=== PATIENT | female | born 1960 | race Caucasian/White ===

== ENCOUNTER 2018-04-13 06:02 | Inpatient (IN) ==
[2018-04-13] MEDS ORDERED: CeFAZolin Syr 2,000MG/20 ML 2,000 MG/20 ML SYRINGE IVPB ONE (06:19)
[2018-04-13] MEDS ORDERED: Ringers Solution, Lactated 1,000 ML IVC SCH ×2 (06:30→07:30)
[2018-04-13] MEDS ORDERED: Albuterol 2.5 MG/3 ML NEBULIZER IH ONE ×2 (06:44→07:21)
--- NOTE | 2018-04-13 07:03 | Urology History & Physical ---
Date of Encounter: 04/13/18 Time of Encounter: 07:01 Assessment and Plan (1) Uterine prolapse Current Visit: Yes Status: Acute all questions answered. ok to proceed with surgery as planned History of Present Illness Chief complaint: here for surgery HPI: Ms. Arreaga is a 57 year old female plan for a ASCP and mid urethral sling. supracerival hyst. Past Med Surg Social Fam HX - Past Medical History Medical history: GERD, hyperlipidemia, hypertension Additional medical history: benign tumor right breast,diverticulosis Psychiatric history: no psych history - Past Surgical History Surgical History: breast surgery, Additional surgical history: egd/colonoscopy - Social History Smoking Status: Current every day smoker Smokeless Tobacco Status: No Alcohol use: none Drug use: none Medications and Allergies Ezetimibe 10 mg PO DAILY 04/13/18 [History] Losartan Potassium 25 mg PO DAILY 04/13/18 [History] Ranitidine HCl [Acid Food Counter Attendant] 150 mg PO BID 04/13/18 [History] Allergy/AdvReac Type Severity Reaction Status Date / Time codeine Allergy Hives Verified 12/13/16 10:08 Review of Systems - Constitutional no fever(s) Exam Initial Vital Signs Temp Pulse Resp BP Pulse Ox 98.6 F 81 18 109/65 96 04/13/18 06:18 04/13/18 06:18 04/13/18 06:18 04/13/18 06:18 04/13/18 06:18 - General physical appearance Absent: well developed, no distress Urology Results - Labs All other labs normal.
[2018-04-13] MEDS ORDERED: *HR* Midazolam HCl 2 MG/2 ML VIAL ONE (07:05)
[2018-04-13] MEDS ORDERED: Lidocaine -MPF 4% 5 ML AMPUL ONE (07:05)
[2018-04-13] MEDS ORDERED: Lidocaine -MPF 2% 2 ML VIAL ONE (07:05)
[2018-04-13] MEDS ORDERED: *HR* Rocuronium Bromide 50 MG/5 ML VIAL ONE ×3 (07:05→09:32)
[2018-04-13] MEDS ORDERED: *HR* FentaNYL (PF) 100 MCG/2 ML VIAL ONE (07:05)
[2018-04-13] MEDS ORDERED: *HR* Propofol 200 MG/20 ML VIAL IVP ONE (07:05)
--- NOTE | 2018-04-13 07:05 | Anesthesia Evaluation PreOp ---
Date of Encounter: 04/13/18 Time of Encounter: 07:03 - Past History Planned Operation: Abd sacrocolpopexy, supracervical hysterectomy Cardiac History: HTN, Hyperlipidemia Pulmonary History: Smoker, Pack/yr (40) Other Medical History: GERD Anesthesia History: No Prior Anesthetic Complications, Past Anesthesia (csection, R breast benign tumor, cyst removed from left wrist, tubal, colonoscopy, egd) Alcohol Use: none Drug use: none Medications and Allergies Ezetimibe 10 mg PO DAILY 04/13/18 [History] Losartan Potassium 25 mg PO DAILY 04/13/18 [History] Ranitidine HCl [Acid Jig Bore Operator] 150 mg PO BID 04/13/18 [History] Allergy/AdvReac Type Severity Reaction Status Date / Time codeine Allergy Hives Verified 12/13/16 10:08 - Meds/Allergy Pre-op Review Medications Reviewed: Yes Allergies Reviewed: Yes Beta Blockers on Current Med List: No Anesthesia Results - Labs Laboratory Tests 04/06/18 04/06/18 04/06/18 14:30 14:30 14:30 WBC 9.4 Hgb 15.9 H Hct 49.2 H Plt Count 307 PT 11.5 INR 1.0 APTT 40.4 H Sodium 137 Potassium 5.1 Chloride 105 Carbon Dioxide 27 BUN 14 Creatinine 0.76 - Imaging EKG: report reviewed (SINUS RHYTHM wnl Electronically Signed On 04-09-2018 9:00:57 EST by Jhonny Goff) Anesthesia Exam O2 Sat Height 1.55 m Height 1.55 m Weight 73.028 kg Weight 73.028 kg O2 Sat by Pulse Oximetry 96 Vital Signs Temp Pulse Resp BP Pulse Ox 98.6 F 81 18 109/65 96 04/13/18 06:18 04/13/18 06:18 04/13/18 06:18 04/13/18 06:18 04/13/18 06:18 Height: 5'2" Weight: 73kg NPO (# of Hours): >8 - HEENT Pupil (Motor): Pupils equal, EOMI Mallampati: II Teeth: Edentulous (upper) - OTHER WOOD PROCESSING MACHINE OPERATOR LOC: Oriented OTHER WOOD PROCESSING MACHINE OPERATOR Motor: Normal RUE, Normal LUE, Normal RLE, Normal LLE, Normal Face OTHER WOOD PROCESSING MACHINE OPERATOR Sensory: Normal: RUE, LUE, RLE, LLE, Face - Cardiac Rhythm: Regular - Pulmonary Breath Sounds: bilateral Clear Respiratory Effort: Symmetrical Anesthesia Assess/Plan ASA Score: 2 Level of consciousness: Cooperative Anesthetic Plan: General Monitoring Plan: Standard Monitors Recovery Plan: PACU
[2018-04-13] MEDS ORDERED: Acetaminophen IV 1,000 MG/100 ML INFUS..BTL ONE (07:17)
[2018-04-13] MEDS ORDERED: *HR* OxyCODONE Immed Rel 5 MG TABLET PO PRN (07:21)
[2018-04-13] MEDS ORDERED: *HR* HYDROmorphone (PF) 1 MG/ML SYRINGE IVP PRN (07:21)
[2018-04-13] MEDS ORDERED: *HR* Promethazine 25 MG/ML VIAL IVP PRN (07:21)
[2018-04-13] MEDS ORDERED: Ipratropium Neb 0.5 MG NEBULIZER IH ONE (07:21)
[2018-04-13] MEDS ORDERED: *HR* Meperidine 25 MG/ML SYRINGE IVP PRN (07:21)
[2018-04-13] MEDS ORDERED: Ondansetron 4 MG/2 ML VIAL IVP ONE (07:21)
[2018-04-13] MEDS ORDERED: Dexamethasone 4 MG/ML VIAL ONE (07:28)
[2018-04-13] MEDS ORDERED: Ondansetron 4 MG/2 ML VIAL ONE (07:28)
--- NOTE | 2018-04-13 07:37 | History & Physical Report ---
Date of Encounter: 04/13/18 Time of Encounter: 07:36 24 Hour HP Update - Instructions Instructions: If the History and Physical is less than 30 days old and was completed prior to A.M. admission and or procedure and has NOT been updated on calendar day of procedure please complete this update prior to performing procedure. - Update Patient reports changes in Medical Condition: No Changes in examination, assessment, or condition: No Changes in Medication: No Preop tests/diagnostics Reviewed: Yes Surgery Remains Indicated: Yes Consent for Planned Operative Procedure(s) Verified: Yes - Pre-Operative Checklist Preoperative Checklist Indicated: Yes Prophylactic Antibiotic Ordered: Yes Home Medications Include Beta Deacon: No Beta Deacon Taken Today (Day of Surgery): No Beta Deacon Taken Yesterday (Day Prior to Surgery): No Is VTE Prophylaxis Indicated?: Yes
[2018-04-13] MEDS ORDERED: Lidocaine/EPI 1:200k 1% PF 10 ML VIAL ONE (07:52)
[2018-04-13] MEDS ORDERED: Neostigmine Methylsulfate 3 MG/3 ML SYRINGE ONE ×2 (08:03→11:07)
[2018-04-13] MEDS ORDERED: *HR* PHENYLEPHRINE 1,000 MCG/10 ML SYRINGE IVP ONE (08:12)
[2018-04-13] MEDS ORDERED: EPHEDrine 50 MG/ML VIAL ONE (08:31)
[2018-04-13] MEDS ORDERED: Esmolol 100 MG/10 ML VIAL IVP ONE (08:50)
[2018-04-13] MEDS ORDERED: *HR* HYDROMORPHONE 2 MG/ML VIAL ONE (09:09)
--- NOTE | 2018-04-13 10:31 | OB/GYN Procedure Note ---
OB-ENROLLED NURSE: Procedure - Diagnosis Date of procedure: 04/13/18 Pre-op diagnosis: Pelvic Organ Prolapse Post-op diagnosis: same - Procedure Procedure: Supracervical hysterectomy, BSO Surgeon: Aleshia Toney Was there an recreation assistant present: Yes Restaurant District Manager: Paula Gee Anesthesia Type: General Estimated blood loss (cc): 5 Fluids: crystalloid Procedure Complications: none Specimens collected: uterus, ovaries and tubes Disposition: same day Findings: normal uterus, ovaries and tubes Narrative: The patient was placed in the dorsal supine position after an adequate level of general anesthesia was obtained and after appropriate informed consent had been obtained. The Anne was draining clear urine from the bladder. After the patient was prepped and draped in the usual sterile manner, a Pfannenstiel incision was made. The subcutaneous tissue was incised until the level of the rectus fascia was reached. A sharri was made in the fascia. This was extended the length of the incision. The recti muscles were to get adequate entry into the abdomen. The abdomen was explored. The findings documented above were noted. The Book Waqas retractor was set up before the hysterectomy was started. The right IP ligament was clamped with the Ligasure device, coagulated and cut freeing the ovary/tube. The round ligament was clamped, coagulated and cut allowing us to gain entry into the broad ligament. The anterior leaf of the broad ligament was dissected and cut using Metzenbaum scissors. The bladder was gently dissected using sharp and blunt dissection. The uterine vessels were skeletonized, clamped, coagulated and cut. A similar procedure was done on the opposite side. The uterus was amputated at this point at the utero-cervico junction with the bovie. Bleeding points were suture ligated until adequate hemostasis was achieved. Pls see Dr Hinojosa's notes for the sacrocolpopexy.
[2018-04-13] MEDS ORDERED: Naloxone 0.4 MG/ML INJ IVP PRN (11:29)
[2018-04-13] MEDS ORDERED: Ondansetron 4 MG/2 ML VIAL IVP PRN (11:29)
[2018-04-13] MEDS ORDERED: *HR* FentaNYL (PF) 100 MCG/2 ML VIAL IVP PRN (11:34)
[2018-04-13] MEDS ORDERED: traMADol 50 MG TABLET PO PRN (11:35)
--- NOTE | 2018-04-13 11:49 | Operative Note ---
Date of procedure: 04/13/18 Pre-op diagnosis: uterine prolapse and CHAI Post-op diagnosis: same Procedure: abdominal sacrocolopexy (ASCP) supris mid urethral sling cystoscopy. Anesthesia: GETA Surgeon: Dylon Hinojosa Was there an credit assistant present: Yes Rubber Tire Curer: Kelley Kim Estimated blood loss (cc): 100 Specimen: none Condition: stable Disposition: PACU Procedure in Detail: I entered the room as Dr. hernandez was completing the supracervical hysterectomy. Patient was already intubated and under anesthesia. She was positioned in dorsal lithotomy. Solano catheter was in place and was draining clear urine. A Bookwalter retractor was in place with the bowel packed superiorly. The case was turned over. I examined the pelvis and noted no significant bleeding from the hysterectomy. There are Vicryl sutures at the location of the supracervical hysterectomy. I did not have good exposure of the sacral promontory I elected to take the superior retractor down and re-pack the bowel superiorly to expose the sacral promontory. I placed an EEA in the vagina to help with mobility of the vaginal cuff. Metzenbaum scissors were used to incise the peritoneum over the sacral promontory and this was continued inferiorly along the right aspect of the pelvis until reaching the vagina. The peritoneum on the anterior aspect of the bladder had already been dissected and there was no evidence of a bladder injury. I did have some difficulty dissecting the peritoneum posterior to the vagina as I did encounter some bleeding from the cervical tissue. I was eventually able to clear a space between the vagina and rectum. I then placed 4 2-0 proline sutures in 4 quadrants along the posterior aspect of the vaginal mucosa. These were later threaded through the [employer] Y mesh and tied down. An additional 4 sutures were placed in the anterior vaginal mucosa and sutured to the other side of the Y mesh. Again the EEA was used to help mobilize and maneuver the vagina during this portion of the procedure. I then preplaced 2 2-0 proline sutures into the tissue near the sacral promontory avoiding venous injury. The remaining arm of the Y mesh was extended up to this location and I threaded the 2 Prolene sutures through the tail of the mesh and tied them to secure the mesh to the tissue surrounding the sacral promontory. It appeared that the vaginal cuff was well supported. The excess mesh was trimmed from each tail. I was able to visualize the right ureter and it was uninjured during the procedure. I then closed the posterior peritoneum with a running 0 Vicryl to completely retroperitonealize the mesh. I then proceeded to perform the mid urethral sling. Weighted vaginal speculum was placed and secured with an Allis clamp. Snowman retractor was placed and used to retract the labia and provide better visualizat ion. At that point, approximately 5 cc of 1% lidocaine with epinephrine was injected into the anterior vaginal mucosa overlying the mid urethra to hydrodissect the area. 15 blade scalpel was then used to make an approximately 2-cm veritcal incision. Underlying tissue was carefully dissected with Metzenbaum scissors and blunt dissection to create a space lateral to the urethra and beneath the pubic rami on each side. The solano catheter was in place allowing me to palpate the urethra and prevent urethral injury during this portion of the procedure. I had adequate dissection on both sides. The Supris trocars were placed from an [id number] fashion down onto my finger within the vaginal incision and previously dissected area. I passed the trochars through the abdominal incision to avoid further stab incisions in the suprapubic region. While passing the trocars I was careful to stay close to the pubic symphysis and used my finger to push the urethra off to the contralateral side. With both trocars in place, I removed the Solano catheter and inserted the 21-[place] rigid cystoscope. The bladder was inspected with a 30 and 70-degree lens. There was clear efflux of urine from both ureteral orifices and no evidence of trocar injury and the bladder mucosa was intact. I also passed a 5-[place] ureteral catheter confirmed the right ureter was uninjured. It passed without resistance. The urethra also appeared uninjured and the solano catheter was replaced. At that point, I obtained the Supris sling and threaded the sling through the eyelets of the trocars. The trocars were then pulled from an [id number] fashion. The sling was positioned under the mid urethra. The sling was not twisted and had minimal tension . I wassatisfied with the sling position and closed the vaginal incision with a running 2-0 Vicryl suture. Vaginal packing was placed with 2- inch Stefanie moistened with normal saline. Solano catheter was left in place. The excess sling material was excised and the suprapubic incisions. I then closed the abdominal incision by reapproximating the rectus muscle with 0 Vicryl. The fascia was closed with a running #1 looped PDS. Laura's with a 2-0 Vicryl and the skin with a 4-0 Monocryl and Dermabond. Abdominal binder was placed. All counts were correct 2.
--- NOTE | 2018-04-13 12:26 | Anesthesia Evaluation Post Op ---
Date of Encounter: 04/13/18 Time of Encounter: 12:26 - Vital Signs Vital Signs: Vital Signs/O2 Sat, Most Current Temp Pulse Resp BP Pulse Ox 98.5 F 87 16 131/55 98 04/13/18 12:00 04/13/18 12:10 04/13/18 12:10 04/13/18 12:10 04/13/18 12:10 - Lungs Lungs: Clear Ascult./Percussion - Airway Airway: Non-obstructed - Cardiovascular Regular Rate, Baseline Rhythm - Mental Status Mental Status: Alert & Oriented, Answers Appropriately - Pain Pain Scale: 2 Pain Scale used: Numeric (1 - 10) - Nausea Vomiting Nausea Vomiting: Not Present - Hydration Hydration: Tolerates oral liquids, Ice chips, Anne catheter - Discharge PostOp Status: Transfer Patient to floor
--- NOTE | 2018-04-13 14:48 | Event Note ---
Date of Encounter: 04/13/18 Time of Encounter: 14:45 POD #0. Patient seen and examined lying in bed in no apparent distress. Patient states pain is well controlled. Anne catheter is indwelling and draining clear urine into bedside bag. Patient is tolerating clears without nausea or vomiting. Primary dressing is clean, dry, intact. Vaginal packing in situ. Reviewed reassuring vital signs and discussed positive patient progress with nurse. Will reevaluate patient in am.
[2018-04-13] MEDS: Acetaminophen IV 1,000 MG/100 ML INFUS..BTL IVPB SCH (17:58)
[2018-04-14] MEDS: Acetaminophen IV 1,000 MG/100 ML INFUS..BTL IVPB SCH ×2 (01:19→05:57)
[2018-04-14 06:26] LABS: Basophils % 0.1 %; Eosinophils % 0.2 %; Hematocrit 38.9 % (35.3-44.9); Hemoglobin 12.9 g/dL (11.5-15.4); Immature Granulocytes % 0.3 % (0-4); Lymphocytes # 2.2 K/mcL (0.6-4.6); Lymphocytes % 17.4 %; Mean Corpuscular HGB Conc 33.2 g/dL (31.6-35.5); Mean Corpuscular Hemoglobin 30.5 pg (28.0-33.3); Monocytes # 1.3 K/mcL (0.0-1.3); Monocytes % 10.2 %; Platelet Count 190 K/mcL (140-400); Red Blood Count 4.23 M/mcL (3.82-4.97); Red Cell Distribution Width 13.5 % (11.5-14.5); Segmented Neutrophils % 71.8 %
[2018-04-14 06:38] LABS: BUN/Creatinine Ratio 20 (6-26); Blood Urea Nitrogen 11 mg/dL (6-20); Calcium 8.7 mg/dL (8.6-10.3); Carbon Dioxide 26 mEq/L (23-29); Chloride 106 mEq/L (98-107); Glucose 125 mg/dL (70-105); Osmolality,Calculated 283 (280-300); Sodium 136 mEq/L (136-145); eGFR For Non-African Americans > 60 (> 60)
--- NOTE | 2018-04-14 08:34 | Discharge Summary ---
Orders not resulted at time of discharge: Pending orders 04/13/18 09:36 Surgical Pathology [PTH] Routine Date of Encounter: 04/14/18 Time of Encounter: 08:34 - Discharge Diagnosis (1) Uterine prolapse Priority: Primary Status: Resolved - Hospital Course Hospital course: Ms. Arreaga is a 57 year old female POD#1 hyst and ASCP with sling. doing great. labs OK. tolerating water. has been out of bed. cath and vag packing out this AM. possible DC today as long as pt urinates. pain is controlled. Time spent discussing smoking cessation with patient: 3 to 10 minutes - Time Spent with Patient Total time spent providing and/or coordinating discharge services: Less than 30 minutes Labs on day of discharge: Labs from last 24 hours 04/14/18 04/14/18 06:08 06:08 WBC 12.5 H RBC 4.23 Hgb 12.9 Hct 38.9 MCV 92.0 MCH 30.5 MCHC 33.2 RDW 13.5 Plt Count 190 MPV 9.0 L Immature Gran % 0.3 Seg Neutrophils % 71.8 Lymphocytes % 17.4 Monocytes % 10.2 Eosinophils % 0.2 Basophils % 0.1 Neutrophils # 9.0 H Lymphocytes # 2.2 Monocytes # 1.3 Eosinophils # 0.0 Basophils # 0.0 Sodium 136 Potassium 4.0 Chloride 106 Carbon Dioxide 26 BUN 11 Creatinine 0.54 L Est GFR ( Amer) > 60 Est GFR (Non-Af Amer) > 60 BUN/Creatinine Ratio 20 Glucose 125 H Calculated Osmolality 283 Calcium 8.7 - Discharge Medications Prescriptions: Tramadol HCl [Ultram] 50 mg PO QID PRN 7 Days #30 tab PRN Reason: Pain Home Medications: Ezetimibe 10 mg PO DAILY 04/13/18 [History] Losartan Potassium 25 mg PO DAILY 04/13/18 [History] Ranitidine HCl [Acid Pantograph Operator] 150 mg PO BID 04/13/18 [History] Tramadol HCl [Ultram] 50 mg PO QID PRN 7 Days #30 tab 04/14/18 [Rx] Allergies/Adverse Reactions: Allergy/AdvReac Type Severity Reaction Status Date / Time codeine Allergy Hives Verified 12/13/16 10:08 Date of admission: 04/13/18 12:37 Primary care physician: Patty Jordan Discharging clinician: Dylon Hinojosa Anticipated date of discharge: 04/14/18 Exam Initial Vital Signs Temp Pulse Resp BP Pulse Ox 98.6 F 81 18 109/65 96 04/13/18 06:18 04/13/18 06:18 04/13/18 06:18 04/13/18 06:18 04/13/18 06:18 - General physical appearance Present: no distress - Additional Findings dressings removed. no bruising. incision intact - Patient Status Disposition: Home, Self-Care Condition: Good Functional capacity at discharge: independent ambulation Overall status at discharge: patient is progressing back to baseline - Discharge Instructions Follow Up With: Patty Jordan CNP [Primary Care Provider] - Dylon Hinojosa MD [Partnered Physician] - (2-4 weeks. my office will arrange) Aleshia Toney MD [Partnered Physician] - (have pt call office to ar range followup) Additional Instructions: OK to shower no baths or swimming. no driving until cleared by MD no heavy lifting, activity, straining. use stool softeners to prevent constipation no sexual intercourse or anything per vagina some bloody vaginal drainage is normal OK to leave incision open to air. call if severe ABD pain, intractable N/V, fever >101 OK to use OTC ibuprofen and/or tylenol - Diet and Activity Activity: other Diet: advance to your usual diet - VTE Documentation of Mechanical Device: Intermittent pneumatic compression device
[2018-04-14 11:32] VITALS: BP 97/59
== END 2018-04-14 12:00 | disposition home or self-care (01) | DRG 513 ==
LOC: SAMDAY 06:02 → 1NENUOBS 12:37
PROVIDERS: ADMIT Student in an Organized Health Care Education/Training Program; ATTEND Student in an Organized Health Care Education/Training Program